=== PATIENT | female | born 1975 | race Caucasian/White ===

== ENCOUNTER 2019-02-07 15:55 | Emergency (ER) | payer OTHER, MEDICAID, SELFPAY ==
[2019-02-07] VITALS (8 sets, daily range): BP systolic 117–151; BP diastolic 77–96; PULSE 97–132; RESP 17–25; TEMP 36.6; O2SAT 95–100; BMI 29.9
--- NOTE | 2019-02-07 16:47 | ED.CHESTPAIN ---
HPI - Chest Pain <PRASAD Smith - Last Filed: 02/07/19 22:39> General Chief Complaint: Chest Pain Stated Complaint: DIZZY, SHAKEY, CHEST HURTS Time Seen by Provider: 02/07/19 16:44 Source: patient Mode of arrival: ambulatory Limitations: no limitations History of Present Illness HPI narrative: 43-year-old female history of chronic knee pain that is a everyday smoker. Here for complaint of dizziness and chest pain that started this morning. She states she got up to go to work. And hopped in the truck and she felt as if her surroundings were spinning. She also reports having some chest pain to the left anterior chest wall also started today. She denies any trauma to the chest area. No nausea or vomiting. She denies any stressors or relievers of her discomfort and dizziness. She is ambulatory into the emergency room. No fevers or chills. She states that she has been tolerating p.o. intake. No shortness of breath at the time of exam. Patient states she felt like she had some pink stool earlier today. She denies any jayesh blood. She denies being on any blood thinners. She does report using ibuprofen for knee pain. Related Data Home Medications Medication Instructions Recorded Confirmed ibuprofen 1 dose PO PRN PRN 02/07/19 02/07/19 Allergies Allergy/AdvReac Type Severity Reaction Status Date / Time isotretinoin [From Accutane] Allergy Intermediate Verified 02/07/19 17:03 prednisone [PREDNISONE] Allergy Intermediate Verified 02/07/19 16:26 Sulfa (Sulfonamide Allergy Intermediate Verified 02/07/19 16:26 Antibiotics) [SULFA (SULFONAMIDE ANTIBIOTICS)] Review of Systems <PRASAD Smith - Last Filed: 02/07/19 22:39> Constitutional Denies chills, Denies fatigue, Denies fever(s), Denies lethargy and Denies weakness Eyes Denies change in vision, Denies eye discharge, Denies irritation and Denies loss of vision ENT Ears, Nose, Mouth, and Throat: Denies change in voice, Denies neck pain and Denies sore throat Cardiovascular Reports lightheadedness, Denies dyspnea and Denies dyspnea on exertion Comments: Chest pain and dizzy Respiratory Denies cough, Denies dyspnea, Denies dyspnea on exertion and Denies wheezing Gastrointestinal Gastrointestinal: Denies abdominal pain, Denies change in bowel habits, Denies diarrhea, Denies nausea and Denies vomiting Musculoskeletal Denies neck pain Integumentary/Breasts Denies pruritus, Denies erythema, Denies rash and Denies wounds Neurologic Denies loss of vision and Denies weakness Endocrine Denies fatigue and Denies flushing Hematologic/Lymphatic Denies easy bruising Allergic/Immunologic Denies wheezing PFSH <PRASAD Smith - Last Filed: 02/07/19 22:39> Social History Smoking Status: Current every day smoker Social History Smoking Status: Current every day smoker Exam <PRASAD Smith - Last Filed: 02/07/19 22:39> Initial Vital Signs Initial Vital Signs: Vital Signs Temperature 97.8 F 02/07/19 16:26 Pulse Rate 132 H 02/07/19 16:26 Respiratory Rate 22 02/07/19 16:26 Blood Pressure 151/96 H 02/07/19 16:26 Pulse Oximetry 97 02/07/19 16:26 Const General: cooperative and well developed Nutritional Appearance: well nourished Orientation: alert, awake, oriented x3 and not confused HENNV Mouth: oral mucosae normal and moist mucous membranes Eyes Conjunctivae: conjunctivae normal Sclera: sclerae normal Pupils: PERRL EOM: EOM intact bilaterally Chest Other: The pain into left anterior chest is reproducible with palpitation no signs of trauma. Resp Effort & Inspection: normal respiratory effort, able to speak in complete sentences, no respiratory distress and no use of accessory muscles Auscultation: clear to auscultation bilaterally, no rales, no rhonchi and no wheezes Cardio Rate: regular rate Rhythm: regular rhythm Heart Sounds: no click, no gallops, no murmurs and no rubs Pulses: normal peripheral pulses GI Rectal Exam: visual inspection normal, normal sphincter tone and No hemorrhoids Skin General: no rashes or lesions noted, No jaundice and No petechiae Neuro General: alert, oriented x3, gait normal and no focal motor deficits Speech: speech normal Extrem General: full ROM, no clubbing, cyanosis or edema, no pedal edema and no calf tenderness <Mateo Simms DO - Last Filed: 02/08/19 06:29> Initial Vital Signs Initial Vital Signs: Vital Signs Temperature 97.8 F 02/07/19 16:26 Pulse Rate 132 H 02/07/19 16:26 Respiratory Rate 22 02/07/19 16:26 Blood Pressure 151/96 H 02/07/19 16:26 Pulse Oximetry 97 02/07/19 16:26 Course <PRASAD Smith - Last Filed: 02/07/19 22:39> Orders Ordered: Discontinued Medications Sodium Chloride (Normal Saline 0.9%) 1,000 mls @ 150 mls/hr IV CONT JAMES Last Infusion: 02/07/19 20:33 Dose: 0 mls/hr Infusion: 02/07/19 19:35 Dose: 1,000 mls/hr Admin: 02/07/19 18:14 Dose: 150 mls/hr Vital Signs - 8 hr 02/07/19 16:26 02/07/19 17:00 02/07/19 18:30 Temperature 97.8 F Pulse Rate 132 H 97 H 100 H Respiratory Rate 22 18 25 H Blood Pressure 151/96 H Blood Pressure [Right Arm] 141/94 H 122/90 Pulse Oximetry 97 97 95 02/07/19 19:00 02/07/19 19:55 02/07/19 21:00 Temperature Pulse Rate 108 H 100 H 97 H Respiratory Rate 25 H 21 Blood Pressure Blood Pressure [Right Arm] 117/77 149/93 H 145/86 H Pulse Oximetry 100 97 95 02/07/19 21:30 02/07/19 22:11 Temperature Pulse Rate 100 H 97 H Respiratory Rate 18 17 Blood Pressure 142/85 H Blood Pressure [Right Arm] 127/82 Pulse Oximetry 96 98 <Mateo Simms DO - Last Filed: 02/08/19 06:29> Orders Ordered: Discontinued Medications Sodium Chloride (Normal Saline 0.9%) 1,000 mls @ 150 mls/hr IV CONT JAMES Last Infusion: 02/07/19 20:33 Dose: 0 mls/hr Infusion: 02/07/19 19:35 Dose: 1,000 mls/hr Admin: 02/07/19 18:14 Dose: 150 mls/hr Vital Signs - 8 hr 02/07/19 16:26 02/07/19 17:00 02/07/19 18:30 Temperature 97.8 F Pulse Rate 132 H 97 H 100 H Respiratory Rate 22 18 25 H Blood Pressure 151/96 H Blood Pressure [Right Arm] 141/94 H 122/90 Pulse Oximetry 97 97 95 02/07/19 19:00 02/07/19 19:55 02/07/19 21:00 Temperature Pulse Rate 108 H 100 H 97 H Respiratory Rate 25 H 21 Blood Pressure Blood Pressure [Right Arm] 117/77 149/93 H 145/86 H Pulse Oximetry 100 97 95 02/07/19 21:30 02/07/19 22:11 Temperature Pulse Rate 100 H 97 H Respiratory Rate 18 17 Blood Pressure 142/85 H Blood Pressure [Right Arm] 127/82 Pulse Oximetry 96 98 MDM - Chest Pain <PRASAD Smith - Last Filed: 02/07/19 22:39> Lab Data Result diagrams: 02/07/19 17:55 02/07/19 17:55 Lab Results 02/07/19 02/07/19 02/07/19 Range/Units 17:55 17:55 20:05 WBC 9.5 (4.5-11.0) X10^3/uL RBC 5.09 (4.0-5.2) X10^6/uL Hgb 16.8 H (12.0-16.0) g/dL Hct 49.2 H (36-46) % MCV 96.6 (80-100) fL MCH 33.0 (26-34) PG MCHC 34.1 (30-36) % RDW 14.3 (11.6-14.8) % Plt Count 182 (150-400) X10^3/uL Neut % (Auto) 77.4 H (50-75) % Lymph % (Auto) 13.7 L (25-40) % Nance % (Auto) 8.0 (3-14) % Eos % (Auto) 0.3 L (2-4) % Baso % (Auto) 0.6 (0-2) % Neut # (Auto) 7400 H (1363-2512) /uL Lymph # (Auto) 1300 (3548-1865) /uL Nance # (Auto) 800 (0-900) /uL Eos # (Auto) 0 (0-450) /uL Baso # (Auto) 100 (0-100) /uL Sodium 139 (137-145) mmol/L Potassium 4.4 (3.4-5.1) mmol/L Chloride 104 (98-107) mmol/L Carbon Dioxide 24 (22-32) mmol/L BUN 13 (7-17) mg/dL Creatinine 0.90 (0.52-1.04) mg/dL Estimated GFR > 60.0 (>60) mL/min BUN/Creatinine Ratio 14.4 (6-22) Glucose 90 (70-100) mg/dL Calcium 9.4 (8.4-10.2) mg/dL Total Bilirubin 0.8 (0.2-1.3) mg/dL AST 45 H (14-36) IU/L ALT 42 (9-52) IU/L Alkaline Phosphatase 78 (38-126) U/L Total Creatine Kinase 31 (30-135) U/L CK-MB (CK-2) TNP CK-MB (CK-2) Rel Index TNP Troponin I < 0.012 (0.01-0.034) ng/mL Total Protein 7.9 (6.3-8.2) g/dL Albumin 4.4 (3.5-5.0) g/dL Globulin 3.5 (1.7-4.1) g/dL Albumin/Globulin Ratio 1.3 (1.0-2.8) Lipase 108 (23-300) U/L Urine RBC 1-5/hpf (0-5/HPF) Urine WBC 10-30/hpf H (0-5/HPF) Ur Squamous Epith Cells 1-5 /hpf Amorphous Sediment 1+ Urine Bacteria Many (>30) H (None) Urine Mucus 1+ H (Negative) Ur Culture Indicated? Specimen cultured 02/07/19 Range/Units 20:17 WBC (4.5-11.0) X10^3/uL RBC (4.0-5.2) X10^6/uL Hgb (12.0-16.0) g/dL Hct (36-46) % MCV (80-100) fL MCH (26-34) PG MCHC (30-36) % RDW (11.6-14.8) % Plt Count (150-400) X10^3/uL Neut % (Auto) (50-75) % Lymph % (Auto) (25-40) % Nance % (Auto) (3-14) % Eos % (Auto) (2-4) % Baso % (Auto) (0-2) % Neut # (Auto) (3300-9714) /uL Lymph # (Auto) (3815-2823) /uL Nance # (Auto) (0-900) /uL Eos # (Auto) (0-450) /uL Baso # (Auto) (0-100) /uL Sodium (137-145) mmol/L Potassium (3.4-5.1) mmol/L Chloride (98-107) mmol/L Carbon Dioxide (22-32) mmol/L BUN (7-17) mg/dL Creatinine (0.52-1.04) mg/dL Estimated GFR (>60) mL/min BUN/Creatinine Ratio (6-22) Glucose (70-100) mg/dL Calcium (8.4-10.2) mg/dL Total Bilirubin (0.2-1.3) mg/dL AST (14-36) IU/L ALT (9-52) IU/L Alkaline Phosphatase (38-126) U/L Total Creatine Kinase (30-135) U/L CK-MB (CK-2) CK-MB (CK-2) Rel Index Troponin I < 0.012 (0.01-0.034) ng/mL Total Protein (6.3-8.2) g/dL Albumin (3.5-5.0) g/dL Globulin (1.7-4.1) g/dL Albumin/Globulin Ratio (1.0-2.8) Lipase (23-300) U/L Urine RBC (0-5/HPF) Urine WBC (0-5/HPF) Ur Squamous Epith Cells Amorphous Sediment Urine Bacteria (None) Urine Mucus (Negative) Ur Culture Indicated? Point of Care Testing Test Results Negative Urine Dip Bedside Urine Glucose Negative Bedside Urine Bilirubin - Negative Bedside Urine Ketone - Negative Urine Specific [place] 1.015 Bedside Urine Occult Blood +/- Bedside Urine pH 7.0 Bedside Urine Protein - Negative Bedside Urine Urobilinogen - Negative Bedside Urine Nitrite + Positive Bedside Urine Leukocytes ++ 125 Esterase Imaging Data Chest x-ray: Radiologist's impression: [address] [address] XRay Report Signed Patient: Pili Munguia MMR#: [id number] : 1975Acct:[id number] Age/Sex: 43 / FDate of Service: 02/07/19 Loc: ED Accession Number: [id number] Procedure: XR chest 1V Ordering Provider: Camacho Landeros PROCEDURE: XR CHEST 1V INDICATIONS: Dizziness chest pain TECHNIQUE: One view of the chest was acquired. COMPARISON: [facility], CHEST 2 VIEW, 02/27/2018, 16:04. FINDINGS: Surgical changes and devices: None. Lungs and pleura: Lungs are clear. No pleural effusions or pneumothorax. Mediastinum: Mediastinal contours appear normal. Heart size is normal. Bones and chest wall: No suspicious bony lesions. Overlying soft tissues appear unremarkable. IMPRESSION: No acute disease Dictated by: Rahul Franklin M.D. on 02/07/2019 at 17:26 Approved by: Rahul Franklin M.D. on 02/07/2019 at 17:26 CT scan - head: Radiologist's impression: [address] [address] [address] Scan Report Signed Patient: Pili Munguia MMR#: [id number] : 1975Acct:[id number] Age/Sex: 43 / FDate of Service: 02/07/19 Loc: ED Accession Number: [id number] Procedure: CT head/brain wo con Ordering Provider: Camacho Landeros PROCEDURE: CT HEAD/BRAIN WO CON INDICATIONS: Chest pain with dizziness TECHNIQUE: Noncontrast 4.5 mm thick angled axial sections acquired from the foramen magnum to the vertex, with coronal and sagittal reformats. For radiation dose reduction, the following was used: automated exposure control, adjustment of mA and/or kV according to patient size. COMPARISON: None. FINDINGS: Image quality: Excellent. CSF spaces: Basal cisterns are patent. No extra-axial fluid collections. Ventricles are normal in size and shape. Brain: No midline shift. No intracranial masses or hemorrhage. Hemphill-white matter interface is normal. Skull and face: Calvarium and visualized facial bones are intact, without suspicious lesions. Sinuses: Visualized sinuses and mastoids are clear except for minimal left maxillary sinus disease. IMPRESSION: No acute intracranial process Dictated by: Rahul Franklin M.D. on 02/07/2019 at 19:47 Approved by: Rahul Franklin M.D. on 02/07/2019 at 19:48 ECG Data Interpretation: EKG shows sinus rhythm no ST elevation or depression. No ectopy. Ventricular rate of 99. Pr interval 135. QRS duration 84. QTC 384. MDM Narrative Medical decision making narrative: CT that was obtained was negative for any acute findings. Chest CT was obtained was also negative for any acute findings. EKG shows sinus rhythm with no ST elevation or depression. No ectopy. Two sets of cardiac enzymes were obtained and were unremarkable. CBC was obtained was unremarkable. Pain into the chest wall was reproducible with palpation and is reassuring. Chem panel was also ob. Urinalysis showed a white count of 10-30 with 1-5 epithelial cells 1 discussed with patient patient's that she is not having any urinary tract infection type symptoms. She did have a episode where she had tachycardia rhythm seen on tracing. However this was during a timeframe when she was moving and may have been artifact. This stopped right after she stops moving and she did have further episodes while in the emergency room. Culture is pending will hold on treatment for now. After fluids the patient started to feel better with less amount of dizziness. Suspect there may be a dehydration aspect to her symptoms. On rectal exam no bleeding was appreciated. No bloody stool was found. Patient was unable to provide any stool sample and was unable to retrieve any stool from the vault on exam. She is encouraged to drink plenty of fluids follow up with the primary care provider next few days for re-evaluation. For any worsening symptoms return to the emergency room. <Mateo Simms, - Last Filed: 02/08/19 06:29> Lab Data Lab Results 02/07/19 02/07/19 02/07/19 Range/Units 17:55 17:55 20:05 WBC 9.5 (4.5-11.0) X10^3/uL RBC 5.09 (4.0-5.2) X10^6/uL Hgb 16.8 H (12.0-16.0) g/dL Hct 49.2 H (36-46) % MCV 96.6 (80-100) fL MCH 33.0 (26-34) PG MCHC 34.1 (30-36) % RDW 14.3 (11.6-14.8) % Plt Count 182 (150-400) X10^3/uL Neut % (Auto) 77.4 H (50-75) % Lymph % (Auto) 13.7 L (25-40) % Nance % (Auto) 8.0 (3-14) % Eos % (Auto) 0.3 L (2-4) % Baso % (Auto) 0.6 (0-2) % Neut # (Auto) 7400 H (3502-0108) /uL Lymph # (Auto) 1300 (6282-4645) /uL Nance # (Auto) 800 (0-900) /uL Eos # (Auto) 0 (0-450) /uL Baso # (Auto) 100 (0-100) /uL Sodium 139 (137-145) mmol/L Potassium 4.4 (3.4-5.1) mmol/L Chloride 104 (98-107) mmol/L Carbon Dioxide 24 (22-32) mmol/L BUN 13 (7-17) mg/dL Creatinine 0.90 (0.52-1.04) mg/dL Estimated GFR > 60.0 (>60) mL/min BUN/Creatinine Ratio 14.4 (6-22) Glucose 90 (70-100) mg/dL Calcium 9.4 (8.4-10.2) mg/dL Total Bilirubin 0.8 (0.2-1.3) mg/dL AST 45 H (14-36) IU/L ALT 42 (9-52) IU/L Alkaline Phosphatase 78 (38-126) U/L Total Creatine Kinase 31 (30-135) U/L CK-MB (CK-2) TNP CK-MB (CK-2) Rel Index TNP Troponin I < 0.012 (0.01-0.034) ng/mL Total Protein 7.9 (6.3-8.2) g/dL Albumin 4.4 (3.5-5.0) g/dL Globulin 3.5 (1.7-4.1) g/dL Albumin/Globulin Ratio 1.3 (1.0-2.8) Lipase 108 (23-300) U/L Urine RBC 1-5/hpf (0-5/HPF) Urine WBC 10-30/hpf H (0-5/HPF) Ur Squamous Epith Cells 1-5 /hpf Amorphous Sediment 1+ Urine Bacteria Many (>30) H (None) Urine Mucus 1+ H (Negative) Ur Culture Indicated? Specimen cultured 02/07/19 Range/Units 20:17 WBC (4.5-11.0) X10^3/uL RBC (4.0-5.2) X10^6/uL Hgb (12.0-16.0) g/dL Hct (36-46) % MCV (80-100) fL MCH (26-34) PG MCHC (30-36) % RDW (11.6-14.8) % Plt Count (150-400) X10^3/uL Neut % (Auto) (50-75) % Lymph % (Auto) (25-40) % Nance % (Auto) (3-14) % Eos % (Auto) (2-4) % Baso % (Auto) (0-2) % Neut # (Auto) (4416-5250) /uL Lymph # (Auto) (0023-6633) /uL Nance # (Auto) (0-900) /uL Eos # (Auto) (0-450) /uL Baso # (Auto) (0-100) /uL Sodium (137-145) mmol/L Potassium (3.4-5.1) mmol/L Chloride (98-107) mmol/L Carbon Dioxide (22-32) mmol/L BUN (7-17) mg/dL Creatinine (0.52-1.04) mg/dL Estimated GFR (>60) mL/min BUN/Creatinine Ratio (6-22) Glucose (70-100) mg/dL Calcium (8.4-10.2) mg/dL Total Bilirubin (0.2-1.3) mg/dL AST (14-36) IU/L ALT (9-52) IU/L Alkaline Phosphatase (38-126) U/L Total Creatine Kinase (30-135) U/L CK-MB (CK-2) CK-MB (CK-2) Rel Index Troponin I < 0.012 (0.01-0.034) ng/mL Total Protein (6.3-8.2) g/dL Albumin (3.5-5.0) g/dL Globulin (1.7-4.1) g/dL Albumin/Globulin Ratio (1.0-2.8) Lipase (23-300) U/L Urine RBC (0-5/HPF) Urine WBC (0-5/HPF) Ur Squamous Epith Cells Amorphous Sediment Urine Bacteria (None) Urine Mucus (Negative) Ur Culture Indicated? Point of Care Testing Test Results Negative Urine Dip Bedside Urine Glucose Negative Bedside Urine Bilirubin - Negative Bedside Urine Ketone - Negative Urine Specific [place] 1.015 Bedside Urine Occult Blood +/- Bedside Urine pH 7.0 Bedside Urine Protein - Negative Bedside Urine Urobilinogen - Negative Bedside Urine Nitrite + Positive Bedside Urine Leukocytes ++ 125 Esterase Discharge Plan Departure Patient Disposition: Home Clinical Impression: Chest pain Qualifiers: Chest pain type: other chest pain Qualified Code(s): R07.89 - Other chest pain Discharge Date/Time: 02/07/19 22:13 Interventions: ED Discharge Assessment Last Done: 02/07/19 22:11 Instructions: DI for Atypical Chest Pain Activity Restrictions/Additional Instructions: Laboratory results today were unremarkable. Chest x-ray and head CT were obtained were unremarkable. EKG shows a normal sinus rhythm. Dizziness presents as being due to not enough fluids. Symptoms got better after hydration in the emergency room. Ensure you are drinking plenty of fluids. Follow up with her primary care provider in the next few days for re-evaluation. Chest pain is reproducible to the anterior chest wall with palpation and presents as muscle skeletal pain. Rest area. Use [id number] Tylenol as needed for any discomfort. Was unable to rule out any blood in your stool however was no blood found on rectal exam. For any worsening symptoms return emergency room Prescriptions: No Action ibuprofen 200 mg Tablet 1 dose PO PRN PRN (Reason: pain) RF: 0 Referrals: [facility] [Provider Group] <Mateo Simms DO - Last Filed: 02/08/19 06:29> Cosign ED Attending Rosa Attestation: I was immediately available in the department for consultation. Documentation has been reviewed. I agree with assessment and plan.
--- NOTE | 2019-02-07 16:58 | DI.RAD.S_ITS ---
PROCEDURE: XR CHEST 1V INDICATIONS: Dizziness chest pain TECHNIQUE: One view of the chest was acquired. COMPARISON: [facility], , CHEST 2 VIEW, 02/27/2018, 16:04. FINDINGS: Surgical changes and devices: None. Lungs and pleura: Lungs are clear. No pleural effusions or pneumothorax. Mediastinum: Mediastinal contours appear normal. Heart size is normal. Bones and chest wall: No suspicious bony lesions. Overlying soft tissues appear unremarkable. IMPRESSION: No acute disease Dictated by: Rahul Franklin M.D. on 02/07/2019 at 17:26 Approved by: Rahul Franklin M.D. on 02/07/2019 at 17:26
[2019-02-07 18:03] LABS: Add Manual Diff / Slide Review NO; Basophils Absolute Auto 100 /uL (0-100); Basophils Percent Auto 0.6 % (0-2); Eosinophils Absolute Auto 0 /uL (0-450); Eosinophils Percent Auto 0.3 % (2-4); Hematocrit 49.2 % (36-46); Hemoglobin 16.8 g/dL (12.0-16.0); Lymphocytes Absolute Auto 1300 /uL (1100-4500); Lymphocytes Percent Auto 13.7 % (25-40); Mean Corpuscular HGB Conc 34.1 % (30-36); Mean Corpuscular Volume 96.6 fL (80-100); Monocytes Absolute Auto 800 /uL (0-900); Neutrophils Absolute Auto 7400 /uL (1500-7000); Neutrophils Percent Auto 77.4 % (50-75); Platelet Count 182 X10^3/uL (150-400); Red Blood Cell Count 5.09 X10^6/uL (4.0-5.2); Red Cell Distribution Width 14.3 % (11.6-14.8); White Blood Cell Count 9.5 X10^3/uL (4.5-11.0)
[2019-02-07] MEDS: SODIUM CHLORIDE 0.9% 1,000 ML 150 ML IV (18:14)
[2019-02-07 18:15] LABS: Alanine Aminotransferase 42 IU/L (9-52); Albumin 4.4 g/dL (3.5-5.0); Albumin Globulin Ratio 1.3 (1.0-2.8); Alkaline Phosphatase 78 U/L (38-126); Aspartate Aminotransferase 45 IU/L (14-36); BUN Creatinine Ratio 14.4 (6-22); Bilirubin Total 0.8 mg/dL (0.2-1.3); Blood Urea Nitrogen 13 mg/dL (7-17); Calcium 9.4 mg/dL (8.4-10.2); Carbon Dioxide 24 mmol/L (22-32); Chloride 104 mmol/L (98-107); Creatine Kinase 31 U/L (30-135); Estimated Glomerular Filt Rate > 60.0 mL/min (>60); Globulin 3.5 g/dL (1.7-4.1); Glucose 90 mg/dL (70-100); HEMOLYSIS 28 (0-50); Lipase 108 U/L (23-300); Potassium 4.4 mmol/L (3.4-5.1); Sodium 139 mmol/L (137-145); Total Protein 7.9 g/dL (6.3-8.2)
[2019-02-07 18:27] LABS: Troponin I < 0.012 ng/mL (0.01-0.034)
--- NOTE | 2019-02-07 19:12 | DI.CT.S_ITS ---
PROCEDURE: CT HEAD/BRAIN WO CON INDICATIONS: Chest pain with dizziness TECHNIQUE: Noncontrast 4.5 mm thick angled axial sections acquired from the foramen magnum to the vertex, with coronal and sagittal reformats. For radiation dose reduction, the following was used: automated exposure control, adjustment of mA and/or kV according to patient size. COMPARISON: None. FINDINGS: Image quality: Excellent. CSF spaces: Basal cisterns are patent. No extra-axial fluid collections. Ventricles are normal in size and shape. Brain: No midline shift. No intracranial masses or hemorrhage. Hemphill-white matter interface is normal. Skull and face: Calvarium and visualized facial bones are intact, without suspicious lesions. Sinuses: Visualized sinuses and mastoids are clear except for minimal left maxillary sinus disease. IMPRESSION: No acute intracranial process Dictated by: Rahul Franklin M.D. on 02/07/2019 at 19:47 Approved by: Rahul Franklin M.D. on 02/07/2019 at 19:48
[2019-02-07 20:21] LABS: Amorphous Sediment Urine 1+; Bacteria Urine Many (>30); Culture Indicated Urine Specimen Cultured; Mucus Urine 1+ (Negative); RBC Urine 1-5/HPF (0-5/HPF); Squamous Epithelial Cell Urine 1-5 /HPF; WBC Urine 10-30/HPF (0-5/HPF)
[2019-02-07 20:49] LABS: Troponin I < 0.012 ng/mL (0.01-0.034)
--- NOTE | 2019-02-07 21:46 | ED_ITS ---
HPI - Chest Pain <PRASAD Smith - Last Filed: 02/07/19 22:39> General Chief Complaint: Chest Pain Stated Complaint: DIZZY, SHAKEY, CHEST HURTS Time Seen by Provider: 02/07/19 16:44 Source: patient Mode of arrival: ambulatory Limitations: no limitations History of Present Illness HPI narrative: 43-year-old female history of chronic knee pain that is a everyday smoker. Here for complaint of dizziness and chest pain that started this morning. She states she got up to go to work. And hopped in the truck and she felt as if her surroundings were spinning. She also reports having some chest pain to the left anterior chest wall also started today. She denies any trauma to the chest area. No nausea or vomiting. She denies any stressors or relievers of her discomfort and dizziness. She is ambulatory into the emergency room. No fevers or chills. She states that she has been tolerating p.o. intake. No shortness of breath at the time of exam. Patient states she felt like she had some pink stool earlier today. She denies any jayesh blood. She denies being on any blood thinners. She does report using ibuprofen for knee pain. Related Data Home Medications Medication Instructions Recorded Confirmed ibuprofen 1 dose PO PRN PRN 02/07/19 02/07/19 Allergies Allergy/AdvReac Type Severity Reaction Status Date / Time isotretinoin [From Accutane] Allergy Intermediate Verified 02/07/19 17:03 prednisone [PREDNISONE] Allergy Intermediate Verified 02/07/19 16:26 Sulfa (Sulfonamide Allergy Intermediate Verified 02/07/19 16:26 Antibiotics) [SULFA (SULFONAMIDE ANTIBIOTICS)] Review of Systems <PRASAD Smith - Last Filed: 02/07/19 22:39> Constitutional Denies chills, Denies fatigue, Denies fever(s), Denies lethargy and Denies weakness Eyes Denies change in vision, Denies eye discharge, Denies irritation and Denies loss of vision ENT Ears, Nose, Mouth, and Throat: Denies change in voice, Denies neck pain and Denies sore throat Cardiovascular Reports lightheadedness, Denies dyspnea and Denies dyspnea on exertion Comments: Chest pain and dizzy Respiratory Denies cough, Denies dyspnea, Denies dyspnea on exertion and Denies wheezing Gastrointestinal Gastrointestinal: Denies abdominal pain, Denies change in bowel habits, Denies diarrhea, Denies nausea and Denies vomiting Musculoskeletal Denies neck pain Integumentary/Breasts Denies pruritus, Denies erythema, Denies rash and Denies wounds Neurologic Denies loss of vision and Denies weakness Endocrine Denies fatigue and Denies flushing Hematologic/Lymphatic Denies easy bruising Allergic/Immunologic Denies wheezing PFSH <PRASAD Smith - Last Filed: 02/07/19 22:39> Social History Smoking Status: Current every day smoker Social History Smoking Status: Current every day smoker Exam <PRASAD Smith - Last Filed: 02/07/19 22:39> Initial Vital Signs Initial Vital Signs: Vital Signs Temperature 97.8 F 02/07/19 16:26 Pulse Rate 132 H 02/07/19 16:26 Respiratory Rate 22 02/07/19 16:26 Blood Pressure 151/96 H 02/07/19 16:26 Pulse Oximetry 97 02/07/19 16:26 Const General: cooperative and well developed Nutritional Appearance: well nourished Orientation: alert, awake, oriented x3 and not confused HENVA Mouth: oral mucosae normal and moist mucous membranes Eyes Conjunctivae: conjunctivae normal Sclera: sclerae normal Pupils: PERRL EOM: EOM intact bilaterally Chest Other: The pain into left anterior chest is reproducible with palpitation no signs of trauma. Resp Effort & Inspection: normal respiratory effort, able to speak in complete sentences, no respiratory distress and no use of accessory muscles Auscultation: clear to auscultation bilaterally, no rales, no rhonchi and no wheezes Cardio Rate: regular rate Rhythm: regular rhythm Heart Sounds: no click, no gallops, no murmurs and no rubs Pulses: normal peripheral pulses GI Rectal Exam: visual inspection normal, normal sphincter tone and No hemorrhoids Skin General: no rashes or lesions noted, No jaundice and No petechiae Neuro General: alert, oriented x3, gait normal and no focal motor deficits Speech: speech normal Extrem General: full ROM, no clubbing, cyanosis or edema, no pedal edema and no calf tenderness <Mateo Simms DO - Last Filed: 02/08/19 06:29> Initial Vital Signs Initial Vital Signs: Vital Signs Temperature 97.8 F 02/07/19 16:26 Pulse Rate 132 H 02/07/19 16:26 Respiratory Rate 22 02/07/19 16:26 Blood Pressure 151/96 H 02/07/19 16:26 Pulse Oximetry 97 02/07/19 16:26 Course <PRASAD Smith - Last Filed: 02/07/19 22:39> Orders Ordered: Discontinued Medications Sodium Chloride (Normal Saline 0.9%) 1,000 mls @ 150 mls/hr IV CONT JAMES Last Infusion: 02/07/19 20:33 Dose: 0 mls/hr Infusion: 02/07/19 19:35 Dose: 1,000 mls/hr Admin: 02/07/19 18:14 Dose: 150 mls/hr Vital Signs - 8 hr 02/07/19 16:26 02/07/19 17:00 02/07/19 18:30 Temperature 97.8 F Pulse Rate 132 H 97 H 100 H Respiratory Rate 22 18 25 H Blood Pressure 151/96 H Blood Pressure [Right Arm] 141/94 H 122/90 Pulse Oximetry 97 97 95 02/07/19 19:00 02/07/19 19:55 02/07/19 21:00 Temperature Pulse Rate 108 H 100 H 97 H Respiratory Rate 25 H 21 Blood Pressure Blood Pressure [Right Arm] 117/77 149/93 H 145/86 H Pulse Oximetry 100 97 95 02/07/19 21:30 02/07/19 22:11 Temperature Pulse Rate 100 H 97 H Respiratory Rate 18 17 Blood Pressure 142/85 H Blood Pressure [Right Arm] 127/82 Pulse Oximetry 96 98 <Mateo Simms DO - Last Filed: 02/08/19 06:29> Orders Ordered: Discontinued Medications Sodium Chloride (Normal Saline 0.9%) 1,000 mls @ 150 mls/hr IV CONT JAMES Last Infusion: 02/07/19 20:33 Dose: 0 mls/hr Infusion: 02/07/19 19:35 Dose: 1,000 mls/hr Admin: 02/07/19 18:14 Dose: 150 mls/hr Vital Signs - 8 hr 02/07/19 16:26 02/07/19 17:00 02/07/19 18:30 Temperature 97.8 F Pulse Rate 132 H 97 H 100 H Respiratory Rate 22 18 25 H Blood Pressure 151/96 H Blood Pressure [Right Arm] 141/94 H 122/90 Pulse Oximetry 97 97 95 02/07/19 19:00 02/07/19 19:55 02/07/19 21:00 Temperature Pulse Rate 108 H 100 H 97 H Respiratory Rate 25 H 21 Blood Pressure Blood Pressure [Right Arm] 117/77 149/93 H 145/86 H Pulse Oximetry 100 97 95 02/07/19 21:30 02/07/19 22:11 Temperature Pulse Rate 100 H 97 H Respiratory Rate 18 17 Blood Pressure 142/85 H Blood Pressure [Right Arm] 127/82 Pulse Oximetry 96 98 MDM - Chest Pain <PRASAD Smith - Last Filed: 02/07/19 22:39> Lab Data Result diagrams: 02/07/19 17:55 02/07/19 17:55 Lab Results 02/07/19 02/07/19 02/07/19 Range/Units 17:55 17:55 20:05 WBC 9.5 (4.5-11.0) X10^3/uL RBC 5.09 (4.0-5.2) X10^6/uL Hgb 16.8 H (12.0-16.0) g/dL Hct 49.2 H (36-46) % MCV 96.6 (80-100) fL MCH 33.0 (26-34) PG MCHC 34.1 (30-36) % RDW 14.3 (11.6-14.8) % Plt Count 182 (150-400) X10^3/uL Neut % (Auto) 77.4 H (50-75) % Lymph % (Auto) 13.7 L (25-40) % Carlton % (Auto) 8.0 (3-14) % Eos % (Auto) 0.3 L (2-4) % Baso % (Auto) 0.6 (0-2) % Neut # (Auto) 7400 H (7587-8616) /uL Lymph # (Auto) 1300 (0771-5431) /uL Carlton # (Auto) 800 (0-900) /uL Eos # (Auto) 0 (0-450) /uL Baso # (Auto) 100 (0-100) /uL Sodium 139 (137-145) mmol/L Potassium 4.4 (3.4-5.1) mmol/L Chloride 104 (98-107) mmol/L Carbon Dioxide 24 (22-32) mmol/L BUN 13 (7-17) mg/dL Creatinine 0.90 (0.52-1.04) mg/dL Estimated GFR > 60.0 (>60) mL/min BUN/Creatinine Ratio 14.4 (6-22) Glucose 90 (70-100) mg/dL Calcium 9.4 (8.4-10.2) mg/dL Total Bilirubin 0.8 (0.2-1.3) mg/dL AST 45 H (14-36) IU/L ALT 42 (9-52) IU/L Alkaline Phosphatase 78 (38-126) U/L Total Creatine Kinase 31 (30-135) U/L CK-MB (CK-2) TNP CK-MB (CK-2) Rel Index TNP Troponin I < 0.012 (0.01-0.034) ng/mL Total Protein 7.9 (6.3-8.2) g/dL Albumin 4.4 (3.5-5.0) g/dL Globulin 3.5 (1.7-4.1) g/dL Albumin/Globulin Ratio 1.3 (1.0-2.8) Lipase 108 (23-300) U/L Urine RBC 1-5/hpf (0-5/HPF) Urine WBC 10-30/hpf H (0-5/HPF) Ur Squamous Epith Cells 1-5 /hpf Amorphous Sediment 1+ Urine Bacteria Many (>30) H (None) Urine Mucus 1+ H (Negative) Ur Culture Indicated? Specimen cultured 02/07/19 Range/Units 20:17 WBC (4.5-11.0) X10^3/uL RBC (4.0-5.2) X10^6/uL Hgb (12.0-16.0) g/dL Hct (36-46) % MCV (80-100) fL MCH (26-34) PG MCHC (30-36) % RDW (11.6-14.8) % Plt Count (150-400) X10^3/uL Neut % (Auto) (50-75) % Lymph % (Auto) (25-40) % Carlton % (Auto) (3-14) % Eos % (Auto) (2-4) % Baso % (Auto) (0-2) % Neut # (Auto) (2893-7120) /uL Lymph # (Auto) (5842-7705) /uL Carlton # (Auto) (0-900) /uL Eos # (Auto) (0-450) /uL Baso # (Auto) (0-100) /uL Sodium (137-145) mmol/L Potassium (3.4-5.1) mmol/L Chloride (98-107) mmol/L Carbon Dioxide (22-32) mmol/L BUN (7-17) mg/dL Creatinine (0.52-1.04) mg/dL Estimated GFR (>60) mL/min BUN/Creatinine Ratio (6-22) Glucose (70-100) mg/dL Calcium (8.4-10.2) mg/dL Total Bilirubin (0.2-1.3) mg/dL AST (14-36) IU/L ALT (9-52) IU/L Alkaline Phosphatase (38-126) U/L Total Creatine Kinase (30-135) U/L CK-MB (CK-2) CK-MB (CK-2) Rel Index Troponin I < 0.012 (0.01-0.034) ng/mL Total Protein (6.3-8.2) g/dL Albumin (3.5-5.0) g/dL Globulin (1.7-4.1) g/dL Albumin/Globulin Ratio (1.0-2.8) Lipase (23-300) U/L Urine RBC (0-5/HPF) Urine WBC (0-5/HPF) Ur Squamous Epith Cells Amorphous Sediment Urine Bacteria (None) Urine Mucus (Negative) Ur Culture Indicated? Point of Care Testing Test Results Negative Urine Dip Bedside Urine Glucose Negative Bedside Urine Bilirubin - Negative Bedside Urine Ketone - Negative Urine Specific Usk 1.015 Bedside Urine Occult Blood +/- Bedside Urine pH 7.0 Bedside Urine Protein - Negative Bedside Urine Urobilinogen - Negative Bedside Urine Nitrite + Positive Bedside Urine Leukocytes ++ 125 Esterase Imaging Data Chest x-ray: Radiologist's impression: [address] [address] XRay Report Signed Patient: Pili Munguia MMR#: [id number] : 1975Acct:[id number] Age/Sex: 43 / FDate of Service: 02/07/19 Loc: ED Accession Number: [id number] Procedure: XR chest 1V Ordering Provider: Camacho Landeros PROCEDURE: XR CHEST 1V INDICATIONS: Dizziness chest pain TECHNIQUE: One view of the chest was acquired. COMPARISON: [facility], CHEST 2 VIEW, 02/27/2018, 16:04. FINDINGS: Surgical changes and devices: None. Lungs and pleura: Lungs are clear. No pleural effusions or pneumothorax. Mediastinum: Mediastinal contours appear normal. Heart size is normal. Bones and chest wall: No suspicious bony lesions. Overlying soft tissues appear unremarkable. IMPRESSION: No acute disease Dictated by: Rahul Franklin M.D. on 02/07/2019 at 17:26 Approved by: Rahul Franklin M.D. on 02/07/2019 at 17:26 CT scan - head: Radiologist's impression: [address] [address] [address] Scan Report Signed Patient: Pili Munguia MMR#: [id number] : 1975Acct:[id number] Age/Sex: 43 / FDate of Service: 02/07/19 Loc: ED Accession Number: [id number] Procedure: CT head/brain wo con Ordering Provider: Camacho Landeros PROCEDURE: CT HEAD/BRAIN WO CON INDICATIONS: Chest pain with dizziness TECHNIQUE: Noncontrast 4.5 mm thick angled axial sections acquired from the foramen magnum to the vertex, with coronal and sagittal reformats. For radiation dose reduction, the following was used: automated exposure control, adjustment of mA and/or kV according to patient size. COMPARISON: None. FINDINGS: Image quality: Excellent. CSF spaces: Basal cisterns are patent. No extra-axial fluid collections. Ventricles are normal in size and shape. Brain: No midline shift. No intracranial masses or hemorrhage. Hemphill-white matter interface is normal. Skull and face: Calvarium and visualized facial bones are intact, without suspicious lesions. Sinuses: Visualized sinuses and mastoids are clear except for minimal left maxillary sinus disease. IMPRESSION: No acute intracranial process Dictated by: Rahul Franklin M.D. on 02/07/2019 at 19:47 Approved by: Rahul Franklin M.D. on 02/07/2019 at 19:48 ECG Data Interpretation: EKG shows sinus rhythm no ST elevation or depression. No ectopy. Ventricular rate of 99. Pr interval 135. QRS duration 84. QTC 384. MDM Narrative Medical decision making narrative: CT that was obtained was negative for any acute findings. Chest CT was obtained was also negative for any acute findings. EKG shows sinus rhythm with no ST elevation or depression. No ectopy. Two sets of cardiac enzymes were obtained and were unremarkable. CBC was obtained was unremarkable. Pain into the chest wall was reproducible with palpation and is reassuring. Chem panel was also ob. Urinalysis showed a white count of 10- 30 with 1-5 epithelial cells 1 discussed with patient patient's that she is not having any urinary tract infection type symptoms. She did have a episode where she had tachycardia rhythm seen on tracing. However this was during a timeframe when she was moving and may have been artifact. This stopped right after she stops moving and she did have further episodes while in the emergency room. Culture is pending will hold on treatment for now. After fluids the patient started to feel better with less amount of dizziness. Suspect there may be a dehydration aspect to her symptoms. On rectal exam no bleeding was appreciated. No bloody stool was found. Patient was unable to provide any stool sample and was unable to retrieve any stool from the vault on exam. She is encouraged to drink plenty of fluids follow up with the primary care provider next few days for re-evaluation. For any worsening symptoms return to the emergency room. <Mateo Simms, - Last Filed: 02/08/19 06:29> Lab Data Lab Results 02/07/19 02/07/19 02/07/19 Range/Units 17:55 17:55 20:05 WBC 9.5 (4.5-11.0) X10^3/uL RBC 5.09 (4.0-5.2) X10^6/uL Hgb 16.8 H (12.0-16.0) g/dL Hct 49.2 H (36-46) % MCV 96.6 (80-100) fL MCH 33.0 (26-34) PG MCHC 34.1 (30-36) % RDW 14.3 (11.6-14.8) % Plt Count 182 (150-400) X10^3/uL Neut % (Auto) 77.4 H (50-75) % Lymph % (Auto) 13.7 L (25-40) % Carlton % (Auto) 8.0 (3-14) % Eos % (Auto) 0.3 L (2-4) % Baso % (Auto) 0.6 (0-2) % Neut # (Auto) 7400 H (2603-8114) /uL Lymph # (Auto) 1300 (5389-8262) /uL Carlton # (Auto) 800 (0-900) /uL Eos # (Auto) 0 (0-450) /uL Baso # (Auto) 100 (0-100) /uL Sodium 139 (137-145) mmol/L Potassium 4.4 (3.4-5.1) mmol/L Chloride 104 (98-107) mmol/L Carbon Dioxide 24 (22-32) mmol/L BUN 13 (7-17) mg/dL Creatinine 0.90 (0.52-1.04) mg/dL Estimated GFR > 60.0 (>60) mL/min BUN/Creatinine Ratio 14.4 (6-22) Glucose 90 (70-100) mg/dL Calcium 9.4 (8.4-10.2) mg/dL Total Bilirubin 0.8 (0.2-1.3) mg/dL AST 45 H (14-36) IU/L ALT 42 (9-52) IU/L Alkaline Phosphatase 78 (38-126) U/L Total Creatine Kinase 31 (30-135) U/L CK-MB (CK-2) TNP CK-MB (CK-2) Rel Index TNP Troponin I < 0.012 (0.01-0.034) ng/mL Total Protein 7.9 (6.3-8.2) g/dL Albumin 4.4 (3.5-5.0) g/dL Globulin 3.5 (1.7-4.1) g/dL Albumin/Globulin Ratio 1.3 (1.0-2.8) Lipase 108 (23-300) U/L Urine RBC 1-5/hpf (0-5/HPF) Urine WBC 10-30/hpf H (0-5/HPF) Ur Squamous Epith Cells 1-5 /hpf Amorphous Sediment 1+ Urine Bacteria Many (>30) H (None) Urine Mucus 1+ H (Negative) Ur Culture Indicated? Specimen cultured 02/07/19 Range/Units 20:17 WBC (4.5-11.0) X10^3/uL RBC (4.0-5.2) X10^6/uL Hgb (12.0-16.0) g/dL Hct (36-46) % MCV (80-100) fL MCH (26-34) PG MCHC (30-36) % RDW (11.6-14.8) % Plt Count (150-400) X10^3/uL Neut % (Auto) (50-75) % Lymph % (Auto) (25-40) % Carlton % (Auto) (3-14) % Eos % (Auto) (2-4) % Baso % (Auto) (0-2) % Neut # (Auto) (5865-8308) /uL Lymph # (Auto) (9297-5033) /uL Carlton # (Auto) (0-900) /uL Eos # (Auto) (0-450) /uL Baso # (Auto) (0-100) /uL Sodium (137-145) mmol/L Potassium (3.4-5.1) mmol/L Chloride (98-107) mmol/L Carbon Dioxide (22-32) mmol/L BUN (7-17) mg/dL Creatinine (0.52-1.04) mg/dL Estimated GFR (>60) mL/min BUN/Creatinine Ratio (6-22) Glucose (70-100) mg/dL Calcium (8.4-10.2) mg/dL Total Bilirubin (0.2-1.3) mg/dL AST (14-36) IU/L ALT (9-52) IU/L Alkaline Phosphatase (38-126) U/L Total Creatine Kinase (30-135) U/L CK-MB (CK-2) CK-MB (CK-2) Rel Index Troponin I < 0.012 (0.01-0.034) ng/mL Total Protein (6.3-8.2) g/dL Albumin (3.5-5.0) g/dL Globulin (1.7-4.1) g/dL Albumin/Globulin Ratio (1.0-2.8) Lipase (23-300) U/L Urine RBC (0-5/HPF) Urine WBC (0-5/HPF) Ur Squamous Epith Cells Amorphous Sediment Urine Bacteria (None) Urine Mucus (Negative) Ur Culture Indicated? Point of Care Testing Test Results Negative Urine Dip Bedside Urine Glucose Negative Bedside Urine Bilirubin - Negative Bedside Urine Ketone - Negative Urine Specific Usk 1.015 Bedside Urine Occult Blood +/- Bedside Urine pH 7.0 Bedside Urine Protein - Negative Bedside Urine Urobilinogen - Negative Bedside Urine Nitrite + Positive Bedside Urine Leukocytes ++ 125 Esterase Discharge Plan Departure Patient Disposition: Home Clinical Impression: Chest pain Qualifiers: Chest pain type: other chest pain Qualified Code(s): R07.89 - Other chest pain Discharge Date/Time: 02/07/19 22:13 Interventions: ED Discharge Assessment Last Done: 02/07/19 22:11 Instructions: DI for Atypical Chest Pain Activity Restrictions/Additional Instructions: Laboratory results today were unremarkable. Chest x-ray and head CT were obtained were unremarkable. EKG shows a normal sinus rhythm. Dizziness presents as being due to not enough fluids. Symptoms got better after hydration in the emergency room. Ensure you are drinking plenty of fluids. Follow up with her primary care provider in the next few days for re-evaluation. Chest pain is rep roducible to the anterior chest wall with palpation and presents as muscle skeletal pain. Rest area. Use [id number] Tylenol as needed for any discomfort. Was unable to rule out any blood in your stool however was no blood found on rectal exam. For any worsening symptoms return emergency room Prescriptions: No Action ibuprofen 200 mg Tablet 1 dose PO PRN PRN (Reason: pain) RF: 0 Referrals: [facility] [Provider Group] <Mateo Simms DO - Last Filed: 02/08/19 06:29> Cosign ED Attending Rosa Attestation: I was immediately available in the department for consultation. Documentation has been reviewed. I agree with assessment and plan.
== END 2019-02-07 22:13 | disposition home or self-care (01) ==
PROVIDERS: Emergency Provider Nurse Practitioner Family
DX: R07.89 Other chest pain (principal)
CPT/HCPCS: 36591; 70450; 71045; 80053; 81003; 81015; 81025; 82550; 83690; 84484; 85025; 87077; 87086; 87186; 93005; 96360; 96361; 99284; 99285

== ENCOUNTER 2019-03-24 05:54 | Emergency (ER) | payer OTHER, MEDICAID, SELFPAY ==
[2019-03-24] MEDS: ONDANSETRON 4 MG/2 ML INJ IV ×2 (06:00→10:21)
[2019-03-24] MEDS: KETOROLAC 60 MG/2 ML VIAL 30 MG IV (06:00)
--- NOTE | 2019-03-24 06:04 | ED.GENADULT ---
HPI - General Adult <Ronnell Trevino DO - Last Filed: 03/24/19 18:17> General Chief complaint: Back Pain/Injury Stated complaint: thinks she is passing kidney stone, rt side pain Time Seen by Provider: 03/24/19 06:03 Source: patient Mode of arrival: ambulatory Limitations: no limitations History of Present Illness HPI narrative: Patient is a 43-year-old female with a known history of kidney stones. She states that she has ?staghorn stones? she states that every time she has had a stone and this had to be retrieved at some point. She states that yesterday she started having right-sided flank pain which then got worse this morning. She has not noticed any urinary symptoms or fevers. She states it feels like 1 of her prior stones. Has not tried anything for symptoms prior to arrival Related Data Home Medications Medication Instructions Recorded Confirmed ibuprofen 1 dose PO PRN PRN 02/07/19 02/07/19 Allergies Allergy/AdvReac Type Severity Reaction Status Date / Time ciprofloxacin Allergy Intermediate Hives Verified 03/24/19 08:00 isotretinoin [From Accutane] Allergy Intermediate Verified 02/07/19 17:03 prednisone [PREDNISONE] Allergy Intermediate Verified 02/07/19 16:26 Sulfa (Sulfonamide Allergy Intermediate Verified 02/07/19 16:26 Antibiotics) [SULFA (SULFONAMIDE ANTIBIOTICS)] Review of Systems <Ronnell Trevino DO - Last Filed: 03/24/19 18:17> Constitutional Denies fever(s) and Denies headache(s) ENT Ears, Nose, Mouth, and Throat: Denies vertigo and Denies headache(s) Cardiovascular Denies chest pain and Denies dyspnea Respiratory Denies dyspnea Gastrointestinal Gastrointestinal: Denies abdominal pain, Denies change in stool character, Reports nausea and Reports vomiting Genitourinary Denies dysuria and Denies flank pain Musculoskeletal Reports back pain and Denies myalgias Integumentary/Breasts Denies rash Neurologic Denies vertigo and Denies headache(s) Hematologic/Lymphatic Denies easy bleeding and Denies easy bruising PFSH <Ronnell Trevino DO - Last Filed: 03/24/19 18:17> Medical History Kidney stones (Acute) Social History Smoking Status: Current every day smoker Social History Smoking Status: Current every day smoker Exam <DO Shannon Goyal Last Filed: 03/24/19 18:17> Initial Vital Signs Initial Vital Signs: Vital Signs Temperature 98 F 03/24/19 06:05 Pulse Rate 130 H 03/24/19 06:05 Respiratory Rate 20 03/24/19 06:05 Blood Pressure 177/108 H 03/24/19 06:05 Pulse Oximetry 99 03/24/19 06:05 Const General: cooperative, No comfortable (Uncomfortable.), well groomed and No acute distress Orientation: alert and awake HENMT Head: normal to inspection and normocephalic Resp Effort & Inspection: normal respiratory effort Auscultation: clear to auscultation bilaterally Cardio Rate: regular rate Rhythm: regular rhythm GI Inspection: non-distended Palpation: soft Back/Spine/Pelvis Back: CVA tenderness right Skin Lesions: no lesions Rashes: no rashes Neuro General: alert, awake and oriented x3 Cognition: normal cognition Speech: speech normal Motor: muscle tone normal throughout Extrem General: normal to inspection and capillary refill normal Psych Appearance: grossly normal and well kempt <Mateo Lugo DO - Last Filed: 03/27/19 02:19> Initial Vital Signs Initial Vital Signs: Vital Signs Temperature 98 F 03/24/19 06:05 Pulse Rate 130 H 03/24/19 06:05 Respiratory Rate 20 03/24/19 06:05 Blood Pressure 177/108 H 03/24/19 06:05 Pulse Oximetry 99 03/24/19 06:05 Course <Ronnell Trevino DO - Last Filed: 03/24/19 18:17> Orders Ordered: Discontinued Medications Hydromorphone HCl (Dilaudid) 0.5 mg IV NOW ONE Stop: 03/24/19 07:52 Last Admin: 03/24/19 07:56 Dose: 0.5 mg Hydromorphone HCl (Dilaudid) 1 mg IV NOW ONE Stop: 03/24/19 08:41 Last Admin: 03/24/19 08:43 Dose: 1 mg Hydromorphone HCl (Dilaudid) 1 mg IV NOW ONE Stop: 03/24/19 10:18 Last Admin: 03/24/19 10:20 Dose: 1 mg Lidocaine HCl 6.1 ml/ Sodium (Chloride) 56.1 mls @ 336.6 mls/hr IV NOW ONE Stop: 03/24/19 06:12 Last Infusion: 03/24/19 07:20 Dose: 0 mls/hr Admin: 03/24/19 06:20 Dose: 336.6 mls/hr Ciprofloxacin (Cipro) 400 mg in 200 mls @ 200 mls/hr IV NOW JAMES Last Infusion: 03/24/19 07:59 Dose: 0 mls/hr Admin: 03/24/19 07:49 Dose: 200 mls/hr Ceftriaxone Sodium/Dextrose (Rocephin) 1 gm in 50 mls @ 100 mls/hr IV NOW ONE Stop: 03/24/19 08:48 Last Infusion: 03/24/19 09:11 Dose: 0 mls/hr Admin: 03/24/19 08:41 Dose: 100 mls/hr Ketorolac Tromethamine (Toradol) 30 mg IV NOW ONE Stop: 03/24/19 06:12 Last Admin: 03/24/19 06:00 Dose: 30 mg Ondansetron HCl (Zofran) 4 mg IV NOW ONE Stop: 03/24/19 06:04 Last Admin: 03/24/19 06:00 Dose: 4 mg Ondansetron HCl (Zofran) 4 mg IV NOW ONE Stop: 03/24/19 10:20 Last Admin: 03/24/19 10:21 Dose: 4 mg Vital Signs - 8 hr 03/24/19 10:29 Pulse Rate 107 H Respiratory Rate 28 H Blood Pressure 156/105 H Pulse Oximetry 98 <Mateo Lugo DO - Last Filed: 03/27/19 02:19> Orders Ordered: Discontinued Medications Hydromorphone HCl (Dilaudid) 0.5 mg IV NOW ONE Stop: 03/24/19 07:52 Last Admin: 03/24/19 07:56 Dose: 0.5 mg Hydromorphone HCl (Dilaudid) 1 mg IV NOW ONE Stop: 03/24/19 08:41 Last Admin: 03/24/19 08:43 Dose: 1 mg Hydromorphone HCl (Dilaudid) 1 mg IV NOW ONE Stop: 03/24/19 10:18 Last Admin: 03/24/19 10:20 Dose: 1 mg Lidocaine HCl 6.1 ml/ Sodium (Chloride) 56.1 mls @ 336.6 mls/hr IV NOW ONE Stop: 03/24/19 06:12 Last Infusion: 03/24/19 07:20 Dose: 0 mls/hr Admin: 03/24/19 06:20 Dose: 336.6 mls/hr Ciprofloxacin (Cipro) 400 mg in 200 mls @ 200 mls/hr IV NOW JAMES Last Infusion: 03/24/19 07:59 Dose: 0 mls/hr Admin: 03/24/19 07:49 Dose: 200 mls/hr Ceftriaxone Sodium/Dextrose (Rocephin) 1 gm in 50 mls @ 100 mls/hr IV NOW ONE Stop: 03/24/19 08:48 Last Infusion: 03/24/19 09:11 Dose: 0 mls/hr Admin: 03/24/19 08:41 Dose: 100 mls/hr Ketorolac Tromethamine (Toradol) 30 mg IV NOW ONE Stop: 03/24/19 06:12 Last Admin: 03/24/19 06:00 Dose: 30 mg Ondansetron HCl (Zofran) 4 mg IV NOW ONE Stop: 03/24/19 06:04 Last Admin: 03/24/19 06:00 Dose: 4 mg Ondansetron HCl (Zofran) 4 mg IV NOW ONE Stop: 03/24/19 10:20 Last Admin: 03/24/19 10:21 Dose: 4 mg Vital Signs - 8 hr 03/24/19 10:29 Pulse Rate 107 H Respiratory Rate 28 H Blood Pressure 156/105 H Pulse Oximetry 98 Medical Decision Making <Ronnell Trevino DO - Last Filed: 03/24/19 18:17> Lab Data Lab results reviewed: Yes I reviewed the patient's lab results. Result diagrams: 03/24/19 07:53 03/24/19 07:53 Lab Results 03/24/19 03/24/19 03/24/19 Range/Units 06:04 07:53 07:53 WBC 12.7 H (4.5-11.0) X10^3/uL RBC 4.97 (4.0-5.2) X10^6/uL Hgb 16.7 H (12.0-16.0) g/dL Hct 48.0 H (36-46) % MCV 96.5 (80-100) fL MCH 33.6 (26-34) PG MCHC 34.8 (30-36) % RDW 13.5 (11.6-14.8) % Plt Count 190 (150-400) X10^3/uL Neut % (Auto) 89.1 H (50-75) % Lymph % (Auto) 5.7 L (25-40) % [place] % (Auto) 4.4 (3-14) % Eos % (Auto) 0.4 L (2-4) % Baso % (Auto) 0.4 (0-2) % Neut # (Auto) 52597 H (7827-8653) /uL Lymph # (Auto) 700 L (0103-9297) /uL [place] # (Auto) 600 (0-900) /uL Eos # (Auto) 0 (0-450) /uL Baso # (Auto) 0 (0-100) /uL Sodium 141 (137-145) mmol/L Potassium 4.2 (3.4-5.1) mmol/L Chloride 104 (98-107) mmol/L Carbon Dioxide 24 (22-32) mmol/L BUN 14 (7-17) mg/dL Creatinine 1.00 (0.52-1.04) mg/dL Estimated GFR 60.0 (>60) mL/min BUN/Creatinine Ratio 14.0 (6-22) Glucose 111 H (70-100) mg/dL Calcium 9.7 (8.4-10.2) mg/dL Urine Color Yellow Urine Appearance Clear Urine pH 6.5 (4.5-8.0) Ur Specific [place] 1.015 (1.000-1.035) Urine Protein 1+ H (Negative) Urine Glucose (UA) Negative (Negative) g/dL Urine Ketones Negative (NEGATIVE) Urine Occult Blood 2+ H (Negative) Urine Nitrate Negative (Negative) Urine Bilirubin Negative (NEGATIVE) Urine Urobilinogen 0.2 (0.2) E.U./dL Ur Leukocyte Esterase 3+ H (NEGATIVE) Urine RBC 5-10/hpf H (0-5/HPF) Urine WBC 30-100/hpf H (0-5/HPF) Urine Bacteria Many (>30) H (None) Ur Culture Indicated? Specimen cultured Imaging Data CT scan - abdomen: Radiologist's impression: Right ureteropelvic junction stone with moderate right hydronephrosis. Measuring 6 x 6 x 7 mm Additional nonobstructing stones in both kidneys. Cholelithiasis. MDM Narrative Medical decision making narrative: Patient with almost complete resolution of her symptoms after the IV medications here in the emergency department. Her urinalysis does have bacteria and white blood cells. Upon further questioning patient states that she is always had to have her stones removed by surgical processes. She has had stents multiple times. She also states she has been septic in the past secondary to an infection in the stones. Her labs are still pending. Given the urinalysis result she was started on Cipro. Care turned over to Dr. Lugo at change of shift to follow up on lab results and further disposition. <Mateo Lugo, DO - Last Filed: 03/27/19 02:19> Lab Data Lab Results 03/24/19 03/24/19 03/24/19 Range/Units 06:04 07:53 07:53 WBC 12.7 H (4.5-11.0) X10^3/uL RBC 4.97 (4.0-5.2) X10^6/uL Hgb 16.7 H (12.0-16.0) g/dL Hct 48.0 H (36-46) % MCV 96.5 (80-100) fL MCH 33.6 (26-34) PG MCHC 34.8 (30-36) % RDW 13.5 (11.6-14.8) % Plt Count 190 (150-400) X10^3/uL Neut % (Auto) 89.1 H (50-75) % Lymph % (Auto) 5.7 L (25-40) % [place] % (Auto) 4.4 (3-14) % Eos % (Auto) 0.4 L (2-4) % Baso % (Auto) 0.4 (0-2) % Neut # (Auto) 62710 H (0553-2167) /uL Lymph # (Auto) 700 L (2254-9953) /uL [place] # (Auto) 600 (0-900) /uL Eos # (Auto) 0 (0-450) /uL Baso # (Auto) 0 (0-100) /uL Sodium 141 (137-145) mmol/L Potassium 4.2 (3.4-5.1) mmol/L Chloride 104 (98-107) mmol/L Carbon Dioxide 24 (22-32) mmol/L BUN 14 (7-17) mg/dL Creatinine 1.00 (0.52-1.04) mg/dL Estimated GFR 60.0 (>60) mL/min BUN/Creatinine Ratio 14.0 (6-22) Glucose 111 H (70-100) mg/dL Calcium 9.7 (8.4-10.2) mg/dL Urine Color Yellow Urine Appearance Clear Urine pH 6.5 (4.5-8.0) Ur Specific [place] 1.015 (1.000-1.035) Urine Protein 1+ H (Negative) Urine Glucose (UA) Negative (Negative) g/dL Urine Ketones Negative (NEGATIVE) Urine Occult Blood 2+ H (Negative) Urine Nitrate Negative (Negative) Urine Bilirubin Negative (NEGATIVE) Urine Urobilinogen 0.2 (0.2) E.U./dL Ur Leukocyte Esterase 3+ H (NEGATIVE) Urine RBC 5-10/hpf H (0-5/HPF) Urine WBC 30-100/hpf H (0-5/HPF) Urine Bacteria Many (>30) H (None) Ur Culture Indicated? Specimen cultured Imaging Data CT scan - abdomen: Radiologist's impression: Pili Munguia 43 F 1975 [place] [address] CT Scan Report Signed Patient: Pili Munguia [facility]#: [id number] : 1975Acct:[id number] Age/Sex: 43 / FDate of Service: 03/24/19 Loc: ED Accession Number: [id number] Procedure: CT kidney ureter bladder (KUB) Ordering Provider: Ronnell Trevino D.O. PROCEDURE: CT KIDNEY URETER BLADDER (KUB) INDICATIONS: Right-sided pain concerning for stone TECHNIQUE: Noncontrast 5 mm thick sections acquired from the diaphragms to the symphysis. 5 mm thick coronal and sagittal reformats were then performed. For radiation dose reduction, the following was used: automated exposure control, adjustment of mA and/or kV according to patient size. COMPARISON: [facility], CT, KIDNEY/ URETER/BLADDER, 10/15/2017, 19:06. FINDINGS: Image quality: Excellent. Lung bases: There is minimal dependent atelectasis. Heart size is normal. Urinary system: There is an obstructing urinary stone at the right ureteropelvic junction measuring up to 7 mm with associated moderate right hydronephrosis and mild perinephric stranding. The stone demonstrates attenuation values of approximately 2388-3669 Hounsfield units suggestive of a cystine stone. There are multiple, at least 8 on the right and approximately 20 on the left, additional nonobstructing bilateral renal stones with the largest measuring up to 6 mm in the left kidney. There is no left hydronephrosis. No calcified bladder stones. There is partial distention of the urinary bladder with suggestion of bladder wall thickening and pericystic fat stranding. Other solid organs: Noncontrast evaluation of the liver demonstrates no focal hepatic lesions. Gallbladder appears within normal limits without calcified gallstones. Pancreas is normal in contours. Spleen is normal in size. No adrenal nodules. Peritoneum and bowel: Unenhanced bowel loops demonstrate normal wall thickness and caliber. The appendix is normal in appearance. No free fluid or air. Nodes and vessels: No retroperitoneal or mesenteric adenopathy by size criteria. Aorta and inferior vena cava are normal in caliber. Abdominal wall: No ventral hernias. Pelvis: No free pelvic fluid. No inguinal hernias or adenopathy. Bones: No suspicious bony lesions. No vertebral body compression fractures. IMPRESSION: 1. Obstructing urinary stone at the right UPJ with moderate hydronephrosis. 2. Additional bilateral nephrolithiasis as described. 3. Mild bladder wall thickening and minimal pericystic stranding. Although there is incomplete distention of the urinary bladder, correlation is recommended clinically for possible cystitis. Dictated by: Genaro Travis M.D. on 03/24/2019 at 8:07 Approved by: Genaro Travis M.D. on 03/24/2019 at 8:13 MDM Narrative Medical decision making narrative: Patient received in sign-out from other provider at the end of their shift. I have performed an independent history and physical and have no significant additional findings. CT notes a large obstructing stone with hydro and the proximal ureter. Patient has signs of infection in her urine including an elevated white blood count in the serum. She has had Toradol, lidocaine drip and multiple doses of Dilaudid. Patient requires transfer to a facility with Urology for stent placement given her large obstructing stone, intractable pain in the setting of infection. She has a history with Urology at [facility], in fact her urologist is on-call today. They request transfer to their facility as soon as possible so they may remedy her situation. Dr. Gifford is outside sales professional for urology and will activate the OR, but requests admission be made to hospitalist (whom I've also spoken with and whom is happy to accept patient) Discharge Plan Departure Patient Disposition: [facility] Clinical Impression: Acute unilateral obstructive uropathy UTI (urinary tract infection) Qualifiers: Urinary tract infection type: site unspecified Hematuria presence: with hematuria Qualified Code(s): N39.0 - Urinary tract infection, site not specified Discharge Date/Time: 03/24/19 10:30 Interventions: ED Discharge Assessment Last Done: 03/24/19 10:29 Prescriptions: No Action ibuprofen 200 mg Tablet 1 dose PO PRN PRN (Reason: pain) RF: 0
[2019-03-24 06:05] VITALS: BP 177/108; PULSE 130; RESP 20; TEMP 36.6; O2SAT 99; BMI 29.9
--- NOTE | 2019-03-24 06:13 | DI.CT.S_ITS ---
PROCEDURE: CT KIDNEY URETER BLADDER (KUB) INDICATIONS: Right-sided pain concerning for stone TECHNIQUE: Noncontrast 5 mm thick sections acquired from the diaphragms to the symphysis. 5 mm thick coronal and sagittal reformats were then performed. For radiation dose reduction, the following was used: automated exposure control, adjustment of mA and/or kV according to patient size. COMPARISON: [facility], CT, KIDNEY/ URETER/BLADDER, 10/15/2017, 19:06. FINDINGS: Image quality: Excellent. Lung bases: There is minimal dependent atelectasis. Heart size is normal. Urinary system: There is an obstructing urinary stone at the right ureteropelvic junction measuring up to 7 mm with associated moderate right hydronephrosis and mild perinephric stranding. The stone demonstrates attenuation values of approximately 7161-1204 Hounsfield units suggestive of a cystine stone. There are multiple, at least 8 on the right and approximately 20 on the left, additional nonobstructing bilateral renal stones with the largest measuring up to 6 mm in the left kidney. There is no left hydronephrosis. No calcified bladder stones. There is partial distention of the urinary bladder with suggestion of bladder wall thickening and pericystic fat stranding. Other solid organs: Noncontrast evaluation of the liver demonstrates no focal hepatic lesions. Gallbladder appears within normal limits without calcified gallstones. Pancreas is normal in contours. Spleen is normal in size. No adrenal nodules. Peritoneum and bowel: Unenhanced bowel loops demonstrate normal wall thickness and caliber. The appendix is normal in appearance. No free fluid or air. Nodes and vessels: No retroperitoneal or mesenteric adenopathy by size criteria. Aorta and inferior vena cava are normal in caliber. Abdominal wall: No ventral hernias. Pelvis: No free pelvic fluid. No inguinal hernias or adenopathy. Bones: No suspicious bony lesions. No vertebral body compression fractures. IMPRESSION: 1. Obstructing urinary stone at the right UPJ with moderate hydronephrosis. 2. Additional bilateral nephrolithiasis as described. 3. Mild bladder wall thickening and minimal pericystic stranding. Although there is incomplete distention of the urinary bladder, correlation is recommended clinically for possible cystitis. Dictated by: Genaro Travis M.D. on 03/24/2019 at 8:07 Approved by: Genaro Travis M.D. on 03/24/2019 at 8:13
[2019-03-24 06:15] LABS: Appearance Urine UA CLEAR; Bilirubin Urine UA NEGATIVE (NEGATIVE); Color Urine UA YELLOW; Glucose Urine UA NEGATIVE (Negative); Ketones Urine UA NEGATIVE (NEGATIVE); Leukocyte Esterase Urine UA 3+ (NEGATIVE); Nitrite Urine UA NEGATIVE (Negative); Occult Blood Urine UA 2+ (Negative); Protein Urine UA 1+ (Negative); Specific Gravity Urine UA 1.015 (1.000-1.035); Urobilinogen Urine UA 0.2 E.U./dL (0.2); pH Urine UA 6.5 (4.5-8.0)
[2019-03-24] MEDS: LIDOCAINE 2% 6.1 ML in SODIUM CHLORIDE 0.9% 50 ML 336.6 ML IV (06:20)
[2019-03-24 06:40] LABS: Bacteria Urine Many (>30); Culture Indicated Urine Specimen Cultured; RBC Urine 5-10/HPF (0-5/HPF); WBC Urine 30-100/HPF (0-5/HPF)
[2019-03-24 07:41] VITALS: BP 156/100; PULSE 98; RESP 20; O2SAT 96
[2019-03-24] MEDS: CIPROFLOXACIN 400 MG/200 ML PIGGYBACK 200 MG IV (07:49)
[2019-03-24] MEDS: HYDROMORPHONE 1 MG INJ 0.5 MG IV (07:56)
--- NOTE | 2019-03-24 08:01 | PC.NURSE ---
Hive and itching/redness to arm proximal to IV site. Infusion stopped per
[2019-03-24 08:05] LABS: Add Manual Diff / Slide Review NO; Basophils Absolute Auto 0 /uL (0-100); Basophils Percent Auto 0.4 % (0-2); Eosinophils Absolute Auto 0 /uL (0-450); Eosinophils Percent Auto 0.4 % (2-4); Hemoglobin 16.7 g/dL (12.0-16.0); Lymphocytes Absolute Auto 700 /uL (1100-4500); Lymphocytes Percent Auto 5.7 % (25-40); Mean Corpuscular HGB Conc 34.8 % (30-36); Mean Corpuscular Hemoglobin 33.6 PG (26-34); Mean Corpuscular Volume 96.5 fL (80-100); Monocytes Absolute Auto 600 /uL (0-900); Monocytes Percent Auto 4.4 % (3-14); Neutrophils Absolute Auto 11300 /uL (1500-7000); Neutrophils Percent Auto 89.1 % (50-75); Platelet Count 190 X10^3/uL (150-400); Red Blood Cell Count 4.97 X10^6/uL (4.0-5.2); Red Cell Distribution Width 13.5 % (11.6-14.8); White Blood Cell Count 12.7 X10^3/uL (4.5-11.0)
[2019-03-24 08:10] VITALS: BP 162/109; PULSE 101; RESP 18
[2019-03-24 08:12] LABS: Blood Urea Nitrogen 14 mg/dL (7-17); Calcium 9.7 mg/dL (8.4-10.2); Carbon Dioxide 24 mmol/L (22-32); Chloride 104 mmol/L (98-107); Glucose 111 mg/dL (70-100); HEMOLYSIS < 15 (0-50); Potassium 4.2 mmol/L (3.4-5.1); Sodium 141 mmol/L (137-145)
[2019-03-24] MEDS: CEFTRIAXONE 1 GM/50 ML FROZ.PIGGY IV (08:41)
[2019-03-24] MEDS: HYDROMORPHONE 1 MG INJ IV ×2 (08:43→10:20)
[2019-03-24 09:30] VITALS: BP 162/109; PULSE 105; RESP 15; O2SAT 93
[2019-03-24 10:29] VITALS: BP 156/105; PULSE 107; RESP 28; O2SAT 98
== END 2019-03-24 10:30 | disposition short-term general hospital (02) ==
PROVIDERS: Emergency Medicine; Emergency Provider Emergency Medicine
DX: N13.9 Obstructive and reflux uropathy, unspecified (principal); N39.0 Urinary tract infection, site not specified
CPT/HCPCS: 36415; 36591; 74176; 80048; 81001; 85025; 87077; 87086; 87186; 96365; 96367; 96375; 96376; 99284; 99285; J0744; J1170; J1885; J2405

== ENCOUNTER → 2019-06-12 08:59 | Outpatient (CLI) | payer OTHER, MEDICAID, SELFPAY ==
--- NOTE | 2019-06-12 | DI.US.S_ITS ---
PROCEDURE: US RENAL COMPLETE INDICATIONS: RIGHT URETERAL STONE TECHNIQUE: Real-time scanning was performed of the kidneys and bladder, with image documentation. COMPARISON: None. FINDINGS: Kidneys: Kidneys are normal in size. Right kidney measures 10.6 cm long; left kidney measures 12.2 cm long. Right renal cortical thickness is 1.4 cm; left renal cortical thickness is 1.8 cm. the 6 x 7 mm nonobstructing stone in lower pole of right kidney is seen. 8 x 7 mm nonobstructing stone is seen in the upper pole of right kidney. 2 x 1.5 x 1.9 cm simple cyst is seen in the upper pole of right kidney. 6 x 6 mm nonobstructing stone is seen in lower pole of left kidney. 7 x 7 mm nonobstructing stone is seen in anterior midpole of left kidney. No gross solid appearing renal lesion. No hydronephrosis. Bladder: Urinary bladder is suboptimally distended with prevoid volume of 43 cc. No discrete bladder wall abnormality is noted. Pre-void images demonstrate no intraluminal masses or stones. On pre-void images, no ureteral jets are noted with color Doppler interrogation. (Of note, ureteral jets may not be detectable in up to 25% of cases due to insufficient differences in specific gravity between ureteral and bladder urine). Miscellaneous: No free pelvic fluid. IMPRESSION: Bilateral nonobstructing subcentimeter renal calculi as above. Simple cyst in upper pole of right kidney. No hydronephrosis. No gross solid appearing renal lesion. No gross abnormality is seen in partially distended urinary bladder. Dictated by: Nasim Taveras M.D. on 06/13/2019 at 14:32 Approved by: Nasim Taveras M.D. on 06/13/2019 at 14:38
== END ==
PROVIDERS: PCP Family Medicine; Visit Provider Urology
DX: N20.0 Calculus of kidney (principal); N28.1 Cyst of kidney, acquired
CPT/HCPCS: 76770

== ENCOUNTER 2019-12-19 15:13 | Emergency (ER) | payer OTHER, MEDICAID, SELFPAY ==
[2019-12-19 15:15] VITALS: BP 141/97; PULSE 111; RESP 20; TEMP 37.3; O2SAT 98
[2019-12-19 16:03] LABS: Influenza A - CEPHEID Flu A POSITIVE (NEGATIVE); Influenza B - CEPHEID Flu B NEGATIVE (NEGATIVE)
--- NOTE | 2019-12-19 19:39 | ED_ITS ---
HPI - URI/Sore Throat General Chief Complaint: Upper Respiratory Symptoms Stated Complaint: vomiting, diarrhea, sore throat, cough, fever Time Seen by Provider: 12/19/19 16:45 Source: patient Mode of arrival: Ambulatory Limitations: no limitations History of Present Illness HPI Narrative: The patient is a 44-year-old female current smoker with history of chronic pain who presents with a chief complaint of cough, sore throat fever nausea with some vomiting and diarrhea that started 4-5 days ago. She states that she versus [employer] and thinks she was exposed to the flu. She has not taken anything at home to feel better. She states today she is eating and drinking well, with no nausea or vomiting. She denies any abdominal pain chest pain or shortness of breath. She complains of loose sounding cough but no shortness of breath. She denies any ear pain but does complain of sore throat Related Data Home Medications Medication Instructions Recorded Confirmed ibuprofen 1 dose PO PRN PRN 02/07/19 02/07/19 Allergies Allergy/AdvReac Type Severity Reaction Status Date / Time ciprofloxacin Allergy Intermediate Hives Verified 03/24/19 08:00 isotretinoin [From Accutane] Allergy Intermediate Verified 02/07/19 17:03 prednisone [PREDNISONE] Allergy Intermediate Verified 02/07/19 16:26 Sulfa (Sulfonamide Allergy Intermediate Verified 02/07/19 16:26 Antibiotics) [SULFA (SULFONAMIDE ANTIBIOTICS)] Review of Systems Review of Systems Narrative: GENERAL: See HPI HEENT: See HPI RESPIRATORY: See HPI CARDIOVASCULAR: Denies chest pain, palpitations, orthopnea, edema, GASTROINTESTINAL: See HPI : Denies dysuria, frequency, incontinence, hematuria, urinary retention. MUSCULOSKELETAL: denies weakness, joint pain, or bony pain SKIN: Denies rash, skin lesions, or other NEUROLOGIC: Denies weakness, headache, numbness, change in speech, confusion, seizures, incoordination. PSYCHIATRIC: No concerning psychosocial issues. 12 point review of systems is negative except for those stated above Patient History Medical History Kidney stones (Acute) Social History Smoking Status: Current every day smoker Smoking Status: Current every day smoker alcohol intake frequency: 3 or more drinks per day Substance Use Type: marijuana Exam Narrative Exam Narrative: GENERAL: This is a well-nourished, well-developed patient, in no acute distress HEAD: Atraumatic. Normocephalic. No temporal or scalp tenderness. EYES: Pupils equal round and reactive. Extraocular motions intact. No scleral icterus. No injection or drainage. ENT: Nose without bleeding, purulent drainage or septal hematoma. Throat without erythema, tonsillar hypertrophy or exudate. Uvula midline. Airway patent. Bilateral TMs pearly archuleta NECK: Trachea midline. No JVD or lymphadenopathy. Supple, nontender, no meningeal signs. CARDIOVASCULAR: Regular rate and rhythm without murmurs, gallops, or rubs. RESPIRATORY: Clear to auscultation. Breath sounds equal bilaterally. No wheezes, rales, or rhonchi. Occasional cough on exam. No increased respiratory effort. No accessory muscle use. GASTROINTESTINAL: Abdomen soft, non-tender, nondistended. No hepato- splenomegaly, or palpable masses. No guarding. Active bowel sounds all 4 quadrants. No pain to palpation. EXTREMITIES: No clubbing, cyanosis, or edema. No joint tenderness, effusion, or edema noted. BACK: Nontender without deformity or crepitance. No flank tenderness. NEURO: AOx3. SKIN: No rash or erythema on visible skin Initial Vital Signs Initial Vital Signs: Vital Signs Temperature 99.2 F 12/19/19 15:15 Pulse Rate 111 H 12/19/19 15:15 Respiratory Rate 20 12/19/19 15:15 Blood Pressure 141/97 H 12/19/19 15:15 Pulse Oximetry 98 12/19/19 15:15 Scores GCS [place] coma scale eye opening: Spontaneous Rashmi coma scale verbal response: Orientated [place] coma scale motor response: Obey commands [place] coma scale total score: 15 Course Orders Ordered: ED Orders 12/19/19 15:17 Influenza A & B (PCR) Stat Vital Signs Vital signs: Vital Signs - 8 hr 12/19/19 15:15 Temperature 99.2 F Pulse Rate 111 H Respiratory Rate 20 Blood Pressure 141/97 H Pulse Oximetry 98 MDM - URI/Sore Throat Lab Data Labs: Lab Results 12/19/19 Range/Units 15:17 Influenza A (RT-PCR) Flu a positive H (NEGATIVE) Influenza B (RT-PCR) Flu b negative (NEGATIVE) Point of Care Testing Rapid Strep A Negative MDM Narrative Medical decision making narrative: The patient is a 44-year-old female who presents with a chief complaint of not feeling well over the past 4-5 days. She states she initially had nausea vomiting and diarrhea, but those have subsided and she is currently keeping down food and fluids well. She does complain of sore throat, test negative for strep. However she test positive for influenza A. We this is likely causing her symptoms. Offered chest x-ray, but lungs are clear at this time and patient declined. I discussed at length the importance of following up with primary care provider the next few days as well as come back to the emergency department for any acute concerns such as chest pain, shortness of breath etcetera. Encouraged [id number] medications at this point time as she is out of the Tamiflu window. Patient has no questions or concerns upon discharge and states understanding of return precautions as well as follow-up care. Discharge Plan Departure Patient Disposition: Home Clinical Impression: Influenza Discharge Date/Time: 12/19/19 17:52 Instructions: DI for Influenza -- Adult Activity Restrictions/Additional Instructions: You tested positive for the flu today. Please follow-up with primary care provider in the next few days. As discussed given, there's no sign of bacterial infection today, but that does not mean that one will not develop. Please rest and push fluids. Unfortunately your out of the Tamiflu window. Please come back to the emergency department for any acute concerns such as co ncern of heart attack or stroke I have given you a note for work Prescriptions: No Action ibuprofen 200 mg Tablet 1 dose PO PRN PRN (Reason: pain) RF: 0 Referrals: Harini Flores DO [Primary Care Provider] - Stand Alone Forms: Work Release Note
== END 2019-12-19 17:52 | disposition home or self-care (01) ==
PROVIDERS: Emergency Medicine; Emergency Provider Nurse Practitioner Family; PCP Family Medicine
DX: J10.1 Influenza due to other identified influenza virus with other respiratory manifestations (principal)
CPT/HCPCS: 87502; 87880; 99281; 99282

== ENCOUNTER 2021-07-18 10:49 | Emergency (ER) | payer OTHER, SELFPAY ==
[2021-07-18 11:36] VITALS: BP 154/94; PULSE 84; RESP 18; TEMP 36.6; O2SAT 98; BMI 32.9
--- NOTE | 2021-07-18 11:40 | DI.RAD.S_ITS ---
PROCEDURE: XR HIP W PEL IF DONE LT 2V INDICATIONS: FALL with left hip and knee pain. TECHNIQUE: AP pelvis with lateral view(s) of the left hip(s). COMPARISON: [facility], CT, CT ABDOMEN PELVIS WITH CONTRAST, 04/04/2019, 19:44. [facility], CR, XR ANKLE LT MIN 3V, 07/18/2021, 11:39. [facility], CR, XR KNEE LT 3V, 07/18/2021, 11:39. FINDINGS: Bones: No fractures or dislocations. Pelvic ring appears intact. No suspicious bony lesions. There is mild superior joint space narrowing seen of both hips, with associated remodeling changes with subchondral sclerosis and osteophyte formation. Soft tissues: The visualized bowel gas pattern is normal. No suspicious soft tissue calcifications. IMPRESSION: No acute fractures can be seen by plain film. Mild bilateral hip degenerative change. Dictated by: Jens Ferrer M.D. on 07/18/2021 at 11:27 Approved by: Jens Ferrer M.D. on 07/18/2021 at 11:27
--- NOTE | 2021-07-18 11:40 | DI.RAD.S_ITS ---
PROCEDURE: XR KNEE LT 3V INDICATIONS: FALL with left hip and knee pain. TECHNIQUE: 3 views of the knee were acquired. COMPARISON: [facility], CR, XR KNEE 3 VIEWS LEFT, 07/18/2019, 12:12. [facility], CR, XR ANKLE LT MIN 3V, 07/18/2021, 11:39. [facility], CR, XR HIP W PEL IF DONE LT 2V, 07/18/2021, 11:39. [facility], CR, KNEE 3V LEFT, 08/29/2017, 15:47. FINDINGS: Bones: No fractures or dislocations. No suspicious bony lesions. The patella is slightly deviated laterally on the sunrise view. Soft tissues: There is a moderate joint effusion. No suspicious soft tissue calcifications. IMPRESSION: No acute fractures are seen. Moderate joint effusion. The patella slightly deviated laterally. Please consider patellar dislocation with ligamentous injury. If it would be helpful for clinical management decision making, please consider a dedicated, scheduled knee MRI for further evaluation (assuming that there is no contraindication). Dictated by: Jens Ferrer M.D. on 07/18/2021 at 11:28 Approved by: Jens Ferrer M.D. on 07/18/2021 at 11:30
--- NOTE | 2021-07-18 11:40 | DI.RAD.S_ITS ---
PROCEDURE: XR ANKLE LT MIN 3V INDICATIONS: FALL with left hip and knee pain. TECHNIQUE: 3 views of the ankle were acquired. COMPARISON: [facility], CR, XR KNEE LT 3V, 07/18/2021, 11:39. [facility], CR, XR HIP W PEL IF DONE LT 2V, 07/18/2021, 11:39. FINDINGS: Bones: No fractures or dislocations. Ankle mortise is normally aligned. No suspicious bony lesions. The talar dome demonstrates no jayesh abnormality. Soft tissues: No tibiotalar joint effusion. Achilles tendon appears normal. IMPRESSION: No displaced fractures seen by plain film. Dictated by: Jens Ferrer M.D. on 07/18/2021 at 11:25 Approved by: Jens Ferrer M.D. on 07/18/2021 at 11:27
--- NOTE | 2021-07-18 16:23 | ED_ITS ---
HPI - Extremity Injury (Lower) <Micheal Middleton PA-C - Last Filed: 07/18/21 17:41> General Chief Complaint: Extremity Injury, Lower Stated Complaint: fell at work left knee Time Seen by Provider: 07/18/21 16:09 Source: patient Mode of arrival: Wheelchair Limitations: no limitations History of Present Illness HPI Narrative: Pili presents today with chief complaint of left knee swelling and pain that started yesterday when she fell while at work. She reports that she was mopping the floors and slipped which caused her to fall directly onto her left knee. She was able to get up and walk afterwards with pain. However, when she woke up this morning the swelling in her leg was significantly worse and her pain was much worse. She is having significant difficulty walking on that leg. She denies any significant numbness or tingling in her legs, hitting her head, loss of consciousness or any other injuries or concerns at this time. She denies any previous injuries to that knee. Related Data Home Medications Medication Instructions Recorded Confirmed ibuprofen 200 mg tablet 1 dose PO PRN PRN 02/07/19 02/07/19 Previous Rx's Medication Instructions Recorded naproxen 500 mg tablet 500 mg PO BID PRN #20 tab 07/18/21 Allergies Allergy/AdvReac Type Severity Reaction Status Date / Time ciprofloxacin Allergy Intermediate Hives Verified 07/18/21 11:35 isotretinoin [From Accutane] Allergy Intermediate Verified 07/18/21 11:35 prednisone [PREDNISONE] Allergy Intermediate Verified 07/18/21 11:35 Sulfa (Sulfonamide Allergy Intermediate Verified 07/18/21 11:35 Antibiotics) [SULFA (SULFONAMIDE ANTIBIOTICS)] hydrocodone AdvReac Verified 07/18/21 11:35 oxycodone AdvReac Verified 07/18/21 11:35 Review of Systems <Micheal Middleton PA-C - Last Filed: 07/18/21 17:41> Review of Systems Narrative: As per HPI Patient History <Micheal Middleton PA-C - Last Filed: 07/18/21 17:41> Medical History (Updated 07/18/21 @ 17:23 by Micheal Middleton PA-C) Kidney stones Social History Smoking Status: Current every day smoker Smoking Status: Current every day smoker alcohol intake frequency: 3 or more drinks per day Substance Use Type: marijuana Exam <Micheal Middleton PA-C - Last Filed: 07/18/21 17:41> Narrative Exam Narrative: Exam Narrative: Const General: cooperative, healthy appearing, comfortable, no acute distress, well developed and well groomed Nutritional Appearance: Elevated BMI Orientation: alert and oriented x3 HENMT Head: normal to inspection and atraumatic Ears: hearing grossly normal bilaterally Nose: external nose normal and nares normal Face and sinus: normal facial exam Neck Neck: normal visual inspection and supple Resp Effort & Inspection: normal respiratory effort, able to speak in complete sentences, no audible wheezes, not labored, no nasal flaring and no respiratory distress Extremities Tenderness and swelling noted to left knee. Significant joint effusion noted. No significant overlying erythema, or other skin changes. Skin is intact. No hip or ankle tenderness with palpation. Neuro General: alert, oriented x3, limping gait, tone normal and moves all extremities Cognition: normal cognition Speech: speech normal Gait: Limping gait Psych Appearance: grossly normal and well kempt Mental Status: mental status grossly normal Speech and Movement: speech and movement normal Mood: congruent mood Affect: normal affect Initial Vital Signs Initial Vital Signs: Vital Signs Temperature 97.9 F 07/18/21 11:36 Pulse Rate 84 07/18/21 11:36 Respiratory Rate 18 07/18/21 11:36 Blood Pressure 154/94 H 07/18/21 11:36 Pulse Oximetry 98 07/18/21 11:36 <Caro Garcia DO - Last Filed: 07/22/21 08:52> Initial Vital Signs Initial Vital Signs: Vital Signs Temperature 97.9 F 07/18/21 11:36 Pulse Rate 84 07/18/21 11:36 Respiratory Rate 18 07/18/21 11:36 Blood Pressure 154/94 H 07/18/21 11:36 Pulse Oximetry 98 07/18/21 11:36 Course <Micheal Middleton PA-C - Last Filed: 07/18/21 17:41> Orders Ordered: Discontinued Medications Ketorolac Tromethamine (Ketorolac 30 Mg/Ml Vial) 30 mg IM NOW ONE Stop: 07/18/21 17:32 Last Admin: 07/18/21 17:35 Dose: 30 mg Documented by: ELISA Vital Signs Vital signs: Vital Signs - 8 hr 07/18/21 11:36 07/18/21 17:39 Temperature 97.9 F Pulse Rate 84 90 Respiratory Rate 18 18 Blood Pressure 154/94 H 147/90 H Pulse Oximetry 98 95 <Caro Garcia DO - Last Filed: 07/22/21 08:52> Orders Ordered: Discontinued Medications Ketorolac Tromethamine (Ketorolac 30 Mg/Ml Vial) 30 mg IM NOW ONE Stop: 07/18/21 17:32 Last Admin: 07/18/21 17:35 Dose: 30 mg Documented by: ELISA Vital Signs Vital signs: Vital Signs - 8 hr 07/18/21 11:36 07/18/21 17:39 Temperature 97.9 F Pulse Rate 84 90 Respiratory Rate 18 18 Blood Pressure 154/94 H 147/90 H Pulse Oximetry 98 95 MDM - Extremity Injury (Lower) <Micheal Middleton PA-C - Last Filed: 07/18/21 17:41> MDM Narrative Medical decision making narrative: No fractures were identified on examination. No evidence of dislocation. No evidence of infection. She has large joint effusion which is likely causing her discomfort. It is possible that she has a ligamentous injury. However, we will treat for sprain/strain with rest, ice, compression and elevation with the expectation that her symptoms will improve. If symptoms fail to improve, she likely could benefit from an MRI. Return precautions were discussed with the patient. Patient verbalizes understanding and agrees to plan and has no further concerns at this time. Thank you A [id number] system was used with the dictation of this note. Please disregard any spelling or grammatical errors. Discharge Plan Departure Patient Disposition: Home Clinical Impression: Acute pain of left knee Effusion of knee joint Qualifiers: Laterality: left Qualified Code(s): M25.462 - Effusion, left knee Activity Restrictions/Additional Instructions: It was nice to meet you this evening. Please continue to apply ice, use the Maxi bandage to help stabilize knee, do light range of motion activities and do active rest as discussed. Recommend nonsteroidal anti-inflammatories or maxi taminophen as needed for pain management. If symptoms continue, please with your primary care provider for possible MRI. Thank you Micheal Middleton PA-C Prescriptions: New naproxen 500 mg tablet 500 mg PO BID PRN (Reason: pain) Qty: 20 RF: 0 No Action ibuprofen 200 mg Tablet 1 dose PO PRN PRN (Reason: pain) RF: 0 Referrals: Harini Flores DO [Primary Care Provider] - <Caro Garcia DO - Last Filed: 07/22/21 08:52> Cosign ED Attending Rosa Attestation: I was immediately available in the department for consultation. Documentation has been reviewed.
[2021-07-18] MEDS: KETOROLAC 30 MG/ML VIAL IM (17:35)
[2021-07-18 17:39] VITALS: BP 147/90; PULSE 90; RESP 18; O2SAT 95
[2021-07-18 18:08] VITALS: BP 146/89; PULSE 101; RESP 16; O2SAT 98
== END 2021-07-18 18:10 | disposition home or self-care (01) ==
PROVIDERS: Emergency Provider Physician Assistant; PCP Family Medicine
DX: M25.562 Pain in left knee (principal); M25.462 Effusion, left knee; W01.0XXA Fall on same level from slipping, tripping and stumbling without subsequent striking against object, initial encounter; Y99.0 Civilian activity done for income or pay
CPT/HCPCS: 73502; 73562; 73610; 96372; 99283; J1885

== ENCOUNTER → 2023-11-07 09:07 | Outpatient (CLI) | payer OTHER, SELFPAY ==
[2023-11-07 10:42] LABS: Influenza A - CEPHEID Flu A NEGATIVE (NEGATIVE); Influenza B - CEPHEID Flu B NEGATIVE (NEGATIVE); Respiratory Syncytial Virus Negative (Negative)
[2023-11-07 10:43] LABS: COVID-19 CEPHEID 4-PLEX PCR Negative (Negative)
== END ==
PROVIDERS: PCP Family Medicine; Visit Provider Physician Assistant
DX: R05.1 Acute cough (principal); J02.9 Acute pharyngitis, unspecified
CPT/HCPCS: 0241U; 87070